=== PATIENT | female | born 1955 | race Caucasian/White ===

== ENCOUNTER → 2019-09-18 | Outpatient (CLI) | payer OTHER | LOC: LAB 10:21 | DX: Z20.828 Contact with and (suspected) exposure to other viral communicable diseases (principal) ==

== ENCOUNTER → 2019-12-01 13:45 | Outpatient (RCR) | payer BC, MEDICARE, OTHER | END | disposition still patient (30) | LOC: PT 11-08 13:01 | DX: M54.5 Low back pain (principal) ==

== ENCOUNTER → 2023-03-11 | Outpatient (CLI) | payer MEDICARE, OTHER | LOC: RAD 14:18 | DX: M19.072 Primary osteoarthritis, left ankle and foot (principal); S99.922A Unspecified injury of left foot, initial encounter ==